=== PATIENT | male | born 1990 | race Caucasian/White ===

== ENCOUNTER 2018-10-08 17:10 | Emergency (ER) | payer MEDICAID ==
[~2018-10-08] VITALS: Ht 182.9 cm; Wt 81.6 kg
[2018-10-08 17:18] VITALS: BP 134/84
--- NOTE | 2018-10-08 18:08 | NUR ---
SPOKE TO PATIENTS MOTHER SHE IS AT WORK AND WILL COME GET HIM ON HER WAY HOME.
--- NOTE | 2018-10-08 18:11 | NUR ---
THIS PATIENT IS A 28 YO MALE BIB EMS FROM THE [facility] FOR PUBLIC INTOXICATION. HE IS AWAKE AND ALERT ORIENTED X 4 ABLE TO [facility]. NO MEDICAL COMPLAINTS ON ARRIVAL. MEDICAL SCREENING BY MD. STABLE FOR DISCHARGE.
[2018-10-08 21:00] VITALS: BP 119/88
--- NOTE | 2018-10-08 21:00 | NUR ---
PARENTS PICKED UP PATIENT AT THIS TIME PER ADMITTING. PT LEFT WITHOUT DISCHARGE PAPERWORK. AMBULATORY WITH STEADY GAIT. ER MD NOTIFIED.
== END 2018-10-08 21:00 | disposition home or self-care (01) ==
LOC: MED 17:10
DX: F10.129 Alcohol abuse with intoxication, unspecified (principal); F17.210 Nicotine dependence, cigarettes, uncomplicated; F31.9 Bipolar disorder, unspecified; Y90.9 Presence of alcohol in blood, level not specified
CPT/HCPCS: 99283